=== PATIENT | male | born 1950 | race Caucasian/White ===

== ENCOUNTER 2024-09-27 16:52 | Emergency (ER) | payer OTHER ==
[~2024-09-27] VITALS: Ht 162.6 cm; Wt 79.4 kg
--- NOTE | 2024-09-27 17:33 | ERN ---
ED Note History of Present Illness Stated Complaint: LEFT EYE BLURRED VISSION SINCE Aug Chief Complaint: Eye Problems Time Seen by MD: 17:00 Dictation: 74-YEAR-OLD MALE HERE WITH COMPLAINTS OF HAVING TRANSIENT VISION CHANGES THAT HAPPENED ON FIVE AND 09/25. HE STATES THE 1ST TIME IT HAPPENED [place] [employer] HE LOST THE VISION TO HIS LEFT EYE FOR APPROXIMATELY 30 SECONDS AND THEN IT CAME BACK SPONTANEOUSLY. HE STATES HE DISREGARDED IT SINCE HIS ONE TIME EVENT, THEN IT REPEATED ITSELF ON 09/25. THAT TIME IT LASTED1 MINUTE. HE CURRENTLY IS NOT COMPLAINING OF ANY VISION CHANGES AT ALL NO HEADACHE, NIH IS 0. NO HISTORY OF ATRIAL FIBRILLATION CAROTID STENOSIS. HE WEARS CORRECTIVE LENSES AND IS FROM [place], SPOKE TO HIS PRIMARY CARE DOCTOR THERE WHO MADE AN APPOINTMENT TO SEE HIM ON 10/05/2024. HE SAID HIS FRIENDS CONVINCED HIM TO COME TO THE EMERGENCY ROOM TO BE FOLLOWED UP WITH. Allergies: Coded Allergies: No Known Drug Allergies (Unverified Allergy, Unknown, 09/27/24) Home Meds Active Scripts Aspirin (Aspirin EC) 81 Mg Tablet.dr, 1 TAB PO DAILY for 30 Days, #30 TAB 0 Refills Prov:LEIA FONSECA NP 09/27/24 Clopidogrel Bisulfate (Plavix) 75 Mg Tablet, 1 TAB PO DAILY for 30 Days, #30 TAB 0 Refills Prov:LEIA FONSECA SET UP MACHINIST 09/27/24 Past Medical History Past Medical History: No Pertinent History Surgical History: Other Surgical History Other: BLADDER CA PSYCH History: no pertinent psych hx RN Note Reviewed/Agreed w/PFSH: Yes Review of System Dictation CONSTITUTIONAL: NEGATIVE EXCEPT FOR HPI HEAD/FACE: NEGATIVE EXCEPT FOR HPI EENT: NEGATIVE EXCEPT FOR HPI VISION LOSS X2 RIGHT EYE THAT LASTED APPROXIMATELY 1 MINUTE RESOLVED NOW RESPIRATORY: NEGATIVE EXCEPT FOR HPI GASTROINTESTINAL/ABDOMINAL: NEGATIVE EXCEPT FOR HPI GENITOURINARY: NEGATIVE EXCEPT FOR HPI MUSCULOSKELETAL: NEGATIVE EXCEPT FOR HPI INTEGUMENTARY: NEGATIVE EXCEPT FOR HPI NEUROLOGICAL/PSYCH: NEGATIVE EXCEPT FOR HPI HEMATOLOGIC/LYMPHATIC: NEGATIVE EXCEPT FOR HPI ALL SYSTEMS NEGATIVE, EXCEPT NOTED ABOVE. 13 POINT REVIEW OF SYSTEMS ASSESSED AND ALL NEGATIVE EXCEPT FOR ABOVE. Initial Vital Sign VS Vital Signs Date Time Temp Pulse Resp B/P (MAP) Pulse Ox O2 Delivery O2 Flow Rate FiO2 09/27/24 16:53 97.5 77 20 138/79 98 Room Air 0 09/27/24 22:57 21 Physical Exam Dictation VITAL SIGNS REVIEWED GENERAL APPEARANCE: ALERT, ORIENTED X 3, NO ACUTE DISTRESS, WELL DEVELOPED, NOURISHED. HEAD AND FACE: NON-TRAUMATIC. EYES: PERRL, PINK CONJUNCTIVAS, EYELID NO TRAUMA, ANTERIOR CHAMBER WITH ARCUS SENILIS. PERRLA, INTERNAL EXAM REVEALS CLEAR OPTIC DISC WITH NO HEMORRHAGING EOMS INTACT NO VISUAL FIELD CUT EARS: PINNAS INTACT AND NO SIGNS OF TRAUMA OR ERYTHEMA EAR CANALS CLEAR AND NO DISCHARGE TM NO ERYTHEMA NOSE: NO DISCHARGE, NO BLEEDING. OROPHARYNX: MOUTH NORMAL, TONGUE PINK, PHARYNX CLEAR,NO ERYTHEMA, TONSILS NO EXUDATES, NO ABSCESSES NOTED, MUCOUS MEMBRANE MOIST NECK: SUPPLE, NON-TENDER, NO THYROMEGALY, NO MASSES, NO JVD, NO BRUITS BREAST:DEFERRED CHEST:NO TENDERNESS, NO CREPITUS, NO PARADOXICAL MOVEMENT, NO RETRACTIONS LUNGS:CLEAR, WELL-VENTILATED, SYMMETRIC, NO RALES, NO WHEEZING, NO RHONCHI, NO STRIDOR, GOOD BREATH SOUNDS BILATERALLY HEART: REGULAR RATE, REGULAR RHYTHM, NO MURMUR, NO GALLOPS VASCULAR: NO PERIPHERAL EDEMA, ABDOMEN: SOFT, POSITIVE BOWEL SOUNDS, NONDISTENDED, NO GUARDING, NONTENDER, NO REBOUND, NO MASSES NO HEPATOMEGALY, NO SPLENOMEGALY, NO ROSA'S SIGN, NO HERNIAS. RECTAL: DEFERRED GENITAL: DEFERRED NEUROLOGICAL: NORMAL SPEECH, MOTOR FUNCTION INTACT, SENSORY FUNCTION INTACT NIH IS 0 MUSCULOSKELETAL: NECK NONTENDER, FULL RANGE OF MOTION, BACK NONTENDER, FULL RANGE OF MOTION, EXTREMITIES: NONTENDER, FULL RANGE OF MOTION SKIN: COLOR PINK, DRY, NO TURGOR, NO RASH, NO LACERATIONS, NO ABRASIONS, NO CONTUSIONS. LYMPHATIC: DEFERRED Results (Laboratory/Radiology) Laboratory/Radiology Laboratory Tests Test 09/27/24 18:04 White Blood Count 8.2 K/uL (4.8-10.8) Red Blood Count 5.37 MIL/uL (4.50-6.20) Hemoglobin 15.6 g/dL (14.0-18.0) Hematocrit 47.7 % (42-54) Mean Corpuscular Volume 88.8 fL (79-99) Mean Corpuscular Hemoglobin 29.1 pg (27.0-33.0) Mean Corpuscular Hemoglobin Concent 32.7 g/dL (32.0-36.0) Red Cell Distribution Width 13.8 % (11.0-15.5) Platelet Count 249 K/uL (130-400) Mean Platelet Volume 10.3 fL (7.5-10.5) Immature Granulocyte % (Auto) 0.2 % (0-1) Neutrophils (%) (Auto) 65.6 % (40.0-77.0) Lymphocytes (%) (Auto) 26.3 % (21.0-51.0) Monocytes (%) (Auto) 7.0 % (3.0-13.0) Eosinophils (%) (Auto) 0.5 % (0.0-8.0) Basophils (%) (Auto) 0.4 % (0.0-5.0) Neutrophils # (Auto) 5.4 K/uL (1.8-7.7) Lymphocytes # (Auto) 2.2 K/uL (1.0-4.8) Monocytes # (Auto) 0.6 K/uL (0.1-1.0) Eosinophils # (Auto) 0.04 K/uL (0.00-0.70) Basophils # (Auto) 0.03 K/uL (0.00-0.20) Absolute Immature Granulocyte (auto 0.02 K/uL (0-1) Nucleated Red Blood Cells 0.0 % (0.0-0.19) Sodium Level 142 mmol/L (136-145) Potassium Level 3.6 mmol/L (3.5-5.1) Chloride Level 103 mmol/L (101-111) Carbon Dioxide Level 28 mmol/L (21-32) Blood Urea Nitrogen 18 mg/dL (7-18) Creatinine 1.1 mg/dL (0.5-1.3) Glomerular Filtration Rate Calc 70 mL/min (>90) Random Glucose 91 mg/dL (70-105) Total Calcium 8.8 mg/dL (8.5-10.1) Troponin I High Sensitivity 8 ng/L (4-75) CT HEAD WITHOUT CONTRAST INDICATION: Transient vision changes TECHNIQUE: Noncontrast axial helical CT images from the vertex through the skull base using 5 mm slice thickness without contrast material. CT was performed with one or more of the following dose reduction techniques: Automated exposure control, adjustment of the mA and/or kV according to patient size, or use of iterative reconstruction technique. COMPARISON: None FINDINGS: The cerebral and cerebellar hemispheres are age-appropriate in appearance. No evidence for abnormal extra-axial fluid collections or masses. The ventricles and sulci are normal in size and configuration. No evidence for intracranial parenchymal, epidural, or subdural hemorrhage, mass effect or midline shift. The gonsales-white matter differentiation is well preserved. No secondary evidence to suggest acute ischemia. The brainstem and cerebellum appear normal. The visualized orbits appear unremarkable. The visible paranasal sinuses and mastoid air cells are clear. The calvarium appears normal. IMPRESSION: No acute intracranial process identified. FINDINGS: ANTERIOR CIRCULATION: The cervical, petrous, cavernous, and supraclinoid segments of the internal carotid arteries appear normal bilaterally. The bilateral anterior cerebral arteries and middle cerebral arteries and their major branch vessels appear normal. The anterior communicating artery appears normal. Both posterior communicating arteries are visualized and appear normal. No evidence of an aneurysm, significant stenosis, occlusion, or vascular malformation of the anterior circulation. POSTERIOR CIRCULATION: The vertebral arteries are normal in course and caliber. Both superior cerebellar arteries and posterior cerebral arteries appear normal. Left posterior cerebral artery communicates directly with the left posterior communicating artery as an incidental finding and normal variant. The vertebrobasilar junction and basilar artery appear unremarkable. No evidence of an aneurysm, significant stenosis, occlusion, or vascular malformation of the posterior circulation. Aberrant right subclavian artery courses behind the esophagus. CAROTID ARTERIES: Bilateral common, external, and cervical internal carotid arteries appear normal. VERTEBRAL ARTERIES: Both vertebral arteries appear normal along the cervical spine, without evidence for dissection. IMPRESSION: 8 no significant flow-rate limiting stenosis based on NASCET criteria. Aberrant right subclavian artery. CAROTID STENOSIS REFERENCE USING NASCET CRITERIA: % ICA stenosis = (1 - narrowest ICA diameter/diameter of distal cervical ICA) x 100. Mild - <50% stenosis. Moderate - 50-69% stenosis. Severe - 70-94% stenosis. Near occlusion - 95-99% stenosis. Occluded - 100% stenosis. Labs Reviewed?: Yes EKG Comment: [facility] Test Date: 2024-09-27 Test Time: 19:25:23 Pat Name: JENNIFER TOWNSENDDianna Department: [facility] Room: Gender: Male Almond Huller: [id number] : 1950 Requested By: LEIA FONSECA Order Number: [id number] Reading MD: Measurements Intervals [place] Rate: 64 P: -7 [place]: 161 QRS: -13 QRSD: 98 T: 27 QT: 420 QTc: 433 Interpretive Statements Sinus rhythm Inferior infarct, old Please click the below link to view image of tracing. ED Course ED Course Orders Procedure Category Date Status Time Visual Acuity Test CPOE 09/27/24 Transmitted (Er) 17:27 Ct Head/Brain W/O CT 09/27/24 Resulted Contrast 17:27 Cbc With Differential LAB 09/27/24 Complete 17:27 12 Lead Ekg Tracing- EKG 09/27/24 Complete Technical 17:27 Troponin I High LAB 09/27/24 Complete Sensitivity 17:27 Basic Metabolic Panel LAB 09/27/24 Complete 17:27 Ct Angio Head And Neck CT 09/27/24 Resulted 20:46 Clopidogrel 300mg Tab PHA 09/27/24 Complete (Plavix 300mg Tab) 21:00 Aspirin 81mg Ec Tab PHA 09/27/24 Complete (Aspirin 81mg Ec Tab 21:00 Iohexol (Omnipaque) PHA 09/27/24 Complete 21:30 Current Medications Medications (Trade) Dose Ordered Sig/Rene Route PRN Reason Start Time Stop Time Status Last Admin Dose Admin Aspirin (Aspirin 81mg Ec Tab) 81 mg ONCE ONCE PO 09/27/24 21:00 09/27/24 21:01 DC 09/27/24 20:57 Clopidogrel Bisulfate (plaVIX 300MG TAB) 300 mg ONCE ONCE PO 09/27/24 21:00 09/27/24 21:01 DC 09/27/24 20:57 Iohexol (Omnipaque) 75 ml STK-MED ONCE IV 09/27/24 21:30 09/27/24 21:31 DC Vital Signs Date Time Temp Pulse Resp B/P (MAP) Pulse Ox O2 Delivery O2 Flow Rate FiO2 09/27/24 22:57 97.9 72 18 136/78 99 Room Air* 0 09/27/24 16:53 97.5 77 20 138/79 98 Room Air 0 2027, patient is neurologically intact speech is clear and vision is intact. Spoke with /neurologist and discussed case to include CT labs and EKG. He said to give patient Plavix 300 mg p.o., [id number] mg p.o., perform CT a of the head and neck. He said if CTA shows carotid stenosis 70% or greater, trans alvaro immediately to higher level of care for endarterectomy or stent. If less than 70% may discharged home with [id number] mg daily with [id number] mg daily and have him follow up with his doctor in [place]. I spoke with patient and he agreed to proceed. Spoke with Dr. Ash abraham, ER MD informed him of how I am proceeding with patient. 2229, patient is neurologically intact with a NIH is 0. He is aware that his CTA head and neck and CT is negative as well as cardiac workup labs. He will be discharged home on Plavix and aspirin per , referred to [facility] all questions and HEART Score Response (Comments) Value EKG: Repolarization changes 1 Age: > 65yrs (+2) 2 Risk Factors: 1-2 risk factors (+1) 1 Initial Troponin: Normal limit (0) 0 Total 4 Medical Decision Making MDM MDM: Differential diagnosis: Vision change/atrial fibrillation/electrolyte imbalance/dehydration/neuro lesion Rationale: Tests considered and ordered secondary to shared decision making include: CT/labs/EKG Previous outside records reviewed: Old ER visits. None Risk of complication and/or morbidity or mortality of patient management: None Medications-Per medication reconciliation see nurse's notes Need for hospitalization: Patient does not meet criteria for hospitalization. None Need for emergency major/minor surgery: No There are no social concerns with this patient. Prescription drug management Plavix 75 mg daily, aspirin 81 mg daily, referral to [facility] Prescriptions will include symptomatic care Patient's prior external medical records from other ER visits were reviewed by me as indicated. Prior testing and results from previous visits were reviewed. Prior tests were taken into account with medical decision making and resource utilization, independent historian/historians were used to obtain complete medical history. I independently interpreted the test that were performed, results were reviewed by me and considered findings on radiology if ordered. Medical management and examination interpretation discussions were had by me with other qualified healthcare professionals as indicated for the patient's care. DX & DISP Disposition: Discharge Departure Impression: Primary Impression: Changes in vision Condition: Stable Scripts Aspirin (Aspirin EC) 81 Mg Tablet. 1 TAB PO DAILY for 30 Days, #30 TAB 0 Refills Prov: LEIA FONSECA SET UP MACHINIST 09/27/24 Clopidogrel Bisulfate (Plavix) 75 Mg Tablet 1 TAB PO DAILY for 30 Days, #30 TAB 0 Refills Prov: LEIA FONSECA NP 09/27/24 Additional Instructions: Follow-up with primary care provider in 1 to 2 days. Take medications as directed here in the emergency room. Okay to continue home medications unless otherwise discussed during your visit in the emergency room today. Return to your nearest emergency room if symptoms worsen or if there is no improvement. Call 911 if you need immediate assistance. Take Tylenol or Motrin over-the- counter as needed and if no contraindications are present. Increase oral hydration. A wound culture or urine culture was ordered here in the emergency room department please follow-up with primary care provider and advise them to get repeat ports from our facility. If you had any Vaughn wrap/splints that were applied here, please do not remove them until you see your primary care or specialty. Diet and activity as tolerated. Follow up with [facility] in the next 1-2 days. Take copies of labs and CTA report with you to appointment. Take Plavix and aspirin 81 mg as directed daily. Time of Disposition: 20:30 I have reviewed the case, and I agree with, Diagnosis and Plan ATTESTATION BY PHYSICIAN I PERFORMED THE SUBSTANTIVE PORTION OF THE VISIT. I HAVE REVIEWED AND PERSONALLY MADE AND APPROVED THE MANAGEMENT PLAN THAT IS DOCUMENTED IN THE NOTE BY MYSELF FOR THE A PP. I ACKNOWLEDGED FOR RESPONSIBILITY FOR THE PATIENT'S MANAGEMENT PLAN. LEIA FONSECA NP Sep 27, 2024 17:33 ASH ABRAHAM DO Sep 27, 2024 23:58
--- NOTE | 2024-09-27 18:06 | HMCIMG ---
CT HEAD WITHOUT CONTRAST INDICATION: Transient vision changes TECHNIQUE: Noncontrast axial helical CT images from the vertex through the skull base using 5 mm slice thickness without contrast material. CT was performed with one or more of the following dose reduction techniques: Automated exposure control, adjustment of the mA and/or kV according to patient size, or use of iterative reconstruction technique. COMPARISON: None FINDINGS: The cerebral and cerebellar hemispheres are age-appropriate in appearance. No evidence for abnormal extra-axial fluid collections or masses. The ventricles and sulci are normal in size and configuration. No evidence for intracranial parenchymal, epidural, or subdural hemorrhage, mass effect or midline shift. The gonsales-white matter differentiation is well preserved. No secondary evidence to suggest acute ischemia. The brainstem and cerebellum appear normal. The visualized orbits appear unremarkable. The visible paranasal sinuses and mastoid air cells are clear. The calvarium appears normal. IMPRESSION: No acute intracranial process identified.
[2024-09-27 18:12] LABS: BASOPHILS # (AUTO) 0.03 K/uL (0.00-0.20); BASOPHILS % (AUTO) 0.4 % (0.0-5.0); EOSINOPHILS # (AUTO) 0.04 K/uL (0.00-0.70); EOSINOPHILS % (AUTO) 0.5 % (0.0-8.0); HEMATOCRIT 47.7 % (42-54); IMMATURE GRANULOCYTE ABSOLUTE 0.02 K/uL (0-1); LYMPHOCYTES # (AUTO) 2.2 K/uL (1.0-4.8); LYMPHOCYTES % (AUTO) 26.3 % (21.0-51.0); MEAN CORPUSCULAR HEMOGLOBIN 29.1 pg (27.0-33.0); MEAN CORPUSCULAR HGB CONC 32.7 g/dL (32.0-36.0); MEAN CORPUSCULAR VOLUME 88.8 fL (79-99); MONOCYTES # (AUTO) 0.6 K/uL (0.1-1.0); NEUTROPHILS # (AUTO) 5.4 K/uL (1.8-7.7); NEUTROPHILS % (AUTO) 65.6 % (40.0-77.0); PLATELET COUNT (AUTO) 249 K/uL (130-400); RED BLOOD CELL COUNT(AUTO) 5.37 MIL/uL (4.50-6.20); RED CELL DISTRIBUTION WIDTH 13.8 % (11.0-15.5); WHITE BLOOD COUNT (AUTO) 8.2 K/uL (4.8-10.8)
[2024-09-27 18:22] LABS: CREATININE 1.1 mg/dL (0.5-1.3); POTASSIUM 3.6 mmol/L (3.5-5.1)
--- NOTE | 2024-09-27 19:28 | EKG ---
[facility] Test Date: 2024-09-27 Test Time: 19:25:23 Pat Name: JENNIFER RAHMAN Department: [facility] Room: Gender: M Supervisor [employer]: [id number] : 1950 Requested By: LEIA FONSECA Order Number: [id number] Reading MD: Gerry Chery Measurements Intervals [place] Rate: 64 P: -7 [place]: 161 QRS: -13 QRSD: 98 T: 27 QT: 420 QTc: 433 Interpretive Statements Sinus rhythm Inferior infarct, old No previous ECG available for comparison Electronically Signed On 09-28-2024 18:39:37 [employer]ER P[employer]OT by Gerry Chery Please click the below link to view image of tracing.
--- NOTE | 2024-09-27 20:09 | NUR ---
RIGHT EYE 20/20, LEFT EYE 20/25
[2024-09-27] MEDS: ASPIRIN 81 MG EC TAB PO ONE (20:57)
[2024-09-27] MEDS: cloPIDOgrel 300MG TAB PO ONE (20:57)
[2024-09-27] MEDS ORDERED: IOHEXOL-350 75 ML VIAL IV ONE (21:30)
--- NOTE | 2024-09-27 22:10 | HMCIMG ---
CT ANGIOGRAM OF THE HEAD WITHOUT AND WITH CONTRAST. CT ANGIOGRAM OF THE NECK WITHOUT AND WITH CONTRAST. CT RECONSTRUCTIONS WITHOUT AND WITH CONTRAST. INDICATION: Strokelike symptoms TECHNIQUE: 3-D helical CT acquisition of the head and neck obtained before and after bolus contrast administration of 100 mL of Omnipaque 350 contrast. Volumetric data was transferred to a [employer] workstation for post processing including 3-D volumetric rendering and multiplanar reconstructions (MPR). Reconstructions reformatted in axial, sagittal, and coronal planes. CT was performed with one or more of the following dose reduction techniques: Automated exposure control, adjustment of the mA and/or kV according to patient size, or use of iterative reconstruction technique. COMPARISON: No prior studies available for comparison. FINDINGS: ANTERIOR CIRCULATION: The cervical, petrous, cavernous, and supraclinoid segments of the internal carotid arteries appear normal bilaterally. The bilateral anterior cerebral arteries and middle cerebral arteries and their major branch vessels appear normal. The anterior communicating artery appears normal. Both posterior communicating arteries are visualized and appear normal. No evidence of an aneurysm, significant stenosis, occlusion, or vascular malformation of the anterior circulation. POSTERIOR CIRCULATION: The vertebral arteries are normal in course and caliber. Both superior cerebellar arteries and posterior cerebral arteries appear normal. Left posterior cerebral artery communicates directly with the left posterior communicating artery as an incidental finding and normal variant. The vertebrobasilar junction and basilar artery appear unremarkable. No evidence of an aneurysm, significant stenosis, occlusion, or vascular malformation of the posterior circulation. Aberrant right subclavian artery courses behind the esophagus. CAROTID ARTERIES: Bilateral common, external, and cervical internal carotid arteries appear normal. VERTEBRAL ARTERIES: Both vertebral arteries appear normal along the cervical spine, without evidence for dissection. IMPRESSION: 8 no significant flow-rate limiting stenosis based on NASCET criteria. Aberrant right subclavian artery. CAROTID STENOSIS REFERENCE USING NASCET CRITERIA: % ICA stenosis = (1 - narrowest ICA diameter/diameter of distal cervical ICA) x 100. Mild - <50% stenosis. Moderate - 50-69% stenosis. Severe - 70-94% stenosis. Near occlusion - 95-99% stenosis. Occluded - 100% stenosis.
[2024-09-27] MEDS ORDERED: CLOP-31 PO (22:32)
[2024-09-27] MEDS ORDERED: ASPI-1443 PO (22:32)
[2024-09-27 22:57] VITALS: BP 136/78; PULSE 72; RESP 18; TEMP 97.8; O2SAT 99
== END 2024-09-27 22:59 | disposition home or self-care (01) ==
LOC: EDH 16:52
DX: H53.8 Other visual disturbances (principal); Z79.02 Long term (current) use of antithrombotics/antiplatelets; Z79.82 Long term (current) use of aspirin; Z85.51 Personal history of malignant neoplasm of bladder
CPT/HCPCS: 99285; 70450; 84484; 80048; 85025; 36415; 70496; 70498; 93005; Q9967